=== PATIENT | female | born 1950 | race African-American/Black ===

== ENCOUNTER → 2016-11-07 | Outpatient (CLI) | payer OTHER, MEDICARE ==
[~2016-11-07] VITALS: Ht 157.5 cm; Wt 85.5 kg
[~2016-11-07] MED LIST: ACTOS 30 MG TAB30 M1 PO; ACYCLOVIR 200200 MG PO; AMITRIPTYLINE H25 M2 PO; ATORVASTATIN CA40 MG PO; FLONASE 0.05%50 MCG NASAL; GLUCOTROL5 MG PO; HYDROCODON-ACE1 EAC7 PO; INVOKANA100 MG PO; INVOKANA300 MG PO; LIDODERM 5%1 PATC1 TRANSDERM; LOSARTAN-HCTZ1 EAC3 PO; MEDROLDOSEPACK PO; NEXIUM40 MG PO; NORCO 5-325 TA1 EACH PO; NORVASC 5 MG TAB5 MG PO; OXYBUTYNIN 5 MG5 M2 PO; POTASSIUM20 PO; ROPINIROLE HCL0.5 MG PO; SYMBICORT160 MCG/4. INH; TRULICITY0.75 MG/0. SQ; ULTRACET TABLET1 TAB PO; VENTOLIN HFA 1818 GM INH; [UNRECOGNIZED DRUG - OTHER] MC
--- NOTE | ~2016-11-07 | HPC ---
[facility] [place] [address] PAIN MANAGEMENT CONSULTATION Name: MARION DE JESUS [facility] #: [facility]#: [id number] Admission: 11/07/16 Attend Phys: Wallace Gonzalez MD Discharge: Date of : 48 Report #: [id number] THIS REPORT FOR: //name// CC: Jose Gonzalez DATE OF SERVICE: 11/07/2016 DATE OF REGISTRATION: 11/07/2016 Followup visit for low back pain with degenerative changes and radiculopathy, bilateral lower extremities. The patient returns to pain clinic today for an epidural injection. Her last injection was 4 months ago. At that time, she reports significant improvement for nearly 3-1/2 months. Pain was in the range of 80% by her estimation. Pain is now returning. She would like another epidural injection. Pain is in her low back, radiates through the left leg, constant, burning, aching and pulling. Pain intensity today is 9/10. MEDICATIONS: Trulicity, ropinirole, fluticasone, albuterol, acyclovir, amlodipine, losartan, oxybutynin, glipizide, potassium. ALLERGIES: LATEX, TRIMETHOPRIM. PHYSICAL EXAMINATION: She moves from sitting to standing position, walks with a cane. She has had ankle problems and has a slightly antalgic gait related to that. She has decreased range of motion of the lumbar spine and tenderness across the low back and into the left buttocks. Straight leg raising reproduces pain from the hip to the knee. Sensation is diminished and she has some burning in the calf with straight leg raising. Weakness is noted bilaterally throughout the lower extremities. IMPRESSION: Low back pain with multiple degenerative changes, radiculopathy primarily on the left today. Previously was on the right. Pain follows L4-L5 distribution as before. PROCEDURE: Lumbar epidural steroid injection L4-L5, left paramedian approach. DESCRIPTION OF PROCEDURE: The patient was taken to the fluoroscopic suite, placed prone, skin prepped with ChloraPrep. Skin anesthetized at L4-L5 to left of midline. A 20-gauge Tuohy epidural needle advanced in the epidural space with loss of resistance. No blood or CSF aspirated. A 1 mL of Omnipaque injected with good spread of dye observed in the epidural space and then [address] [address] PAIN MANAGEMENT CONSULTATION Name: MARION DE JESUS Raad Room #: REG Mehul Casillas#: [id number] Admission: 11/07/16 Attend Phys: Wallace Gonzalez MD Discharge: Date of : 48 Report #: [id number] followed by 3 mL of 0.5% lidocaine mixed with 80 mg of triamcinolone. She tolerated the procedure well and was observed for about 45 minutes and then discharged. Followup visit planned as needed. By: 1028 1647 Wallace Gonzalez MD /nt
[2016-11-07 08:57] VITALS: BP 157/83
== END ==
LOC: PAIN 06:52
DX: M54.16 Radiculopathy, lumbar region (principal); I10 Essential (primary) hypertension

== ENCOUNTER → 2017-01-29 | Outpatient (CLI) | payer OTHER, MEDICARE | LOC: RAD 01:48 | DX: Z12.31 Encounter for screening mammogram for malignant neoplasm of breast (principal); N63 Unspecified lump in breast ==

== ENCOUNTER → 2017-02-05 | Outpatient (CLI) | payer OTHER, MEDICARE | LOC: RAD 01:10 → EDSTATUS 06:31 → RAD 06:33 | DX: N63 Unspecified lump in breast (principal) ==

== ENCOUNTER → 2017-08-14 | Outpatient (CLI) | payer OTHER, MEDICARE ==
[~2017-08-14] VITALS: Ht 154.9 cm; Wt 80.2 kg
--- NOTE | ~2017-08-14 | HPC ---
[facility] [address] [place] [address] PAIN MANAGEMENT CONSULTATION Name: MARION DE JESUS Room #: REG [facility].#: [id number] Admission: 08/14/17 Attend Phys: Wallace Gonzalez MD Discharge: Date of : 48 Report #: [id number] THIS REPORT FOR: //name// CC: Jose Gonzalez DATE OF SERVICE: 08/14/2017 Followup visit for lumbar radiculopathy. The patient returns to the pain clinic today for an epidural injection. Her last injection was performed on 11/07/2016. It has been almost 10 months. She reports that she had outstanding pain relief for nearly 8-9 months. Pain is now returning. It is in her buttocks bilaterally. It is worse with lying down, prolonged standing and walking. She gets relief when she takes medication or sits. The patient has a comorbid condition of asthma. She has shortness of breath. She is a ang-tlwuwvq-etgqjedil diabetic. MEDICATIONS: Reviewed and reconciled from the electronic medical record. ALLERGIES: LATEX, SULFA AND TRIMETHOPRIM. PQRS: Reviewed. Her BMI is 33.4. Weight loss has been discussed. She has some osteoarthritis, mostly in her hips. She has had a previous rotator cuff surgery due to degenerative condition of the shoulder. She does not smoke. She is not currently receiving opioid medication and it is under discussion regarding the opioid crisis in the [place]. IMPRESSION: Chronic low back pain with degenerative changes, with radiculopathy on the left L4-L5 distribution. PROCEDURE: Lumbar epidural injection under fluoroscopic guidance. DESCRIPTION OF PROCEDURE: She was taken to the fluoroscopic suite, placed prone and skin prepped with ChloraPrep. Skin anesthetized over the L4-L5 interspace. A 20-gauge Tuohy epidural needle was advanced in the epidural space with loss of resistance technique. There was no blood or CSF aspirated. One mL of Omnipaque was injected. Good spread of dye observed in the epidural space, followed by 3 mL of 0.5% lidocaine with 80 mg triamcinolone. She tolerated the procedure well, was observed for 45 minutes and discharged. [address] [address] PAIN MANAGEMENT CONSULTATION Name: MARION DE JESUS Room #: REG CLI [facility]#: [id number] Admission: 08/14/17 Attend Phys: Wallace Gonzalez MD Discharge: Date of : 48 Report #: [id number] Followup visit planned as needed. <ELECTRONICALLY SIGNED> By: Wallace Gonzalez MD 10/08/17 1640 1550 2244 Wallace Gonzalez MD /nt
[2017-08-14 14:37] VITALS: BP 123/76
== END | disposition home or self-care (01) ==
LOC: PAIN 07:20
DX: M54.16 Radiculopathy, lumbar region (principal); J45.909 Unspecified asthma, uncomplicated; E11.9 Type 2 diabetes mellitus without complications; Z88.8 Allergy status to other drugs, medicaments and biological substances; Z68.33 Body mass index [BMI] 33.0-33.9, adult; M19.90 Unspecified osteoarthritis, unspecified site; Z98.890 Other specified postprocedural states

== ENCOUNTER → 2018-01-12 | Outpatient (CLI) | payer OTHER, MEDICARE ==
--- NOTE | ~2018-01-12 | EKG ---
[address] [address] ELECTROCARDIOGRAM REPORT Name: MARION DE JESUS [facility] [id number] Admission: 01/12/18 Attend Phys: Omi Olguin, Discharge: Date of : 48 Report #: [id number] THIS REPORT FOR: //name// [facility] Test Date: 2018-01-12 Test Time: 10:30:21 Pat Name: MARION DE JESUS Department: Room: Gender: F Admitting Officer: : 1950 Requested By: Omi Olguin Order Number: [id number] MD: Jerman Yang Measurements Intervals [place] Rate: 70 P: 65 W[place]: 163 QRS: 12 QRSD: 97 T: 54 QT: 399 QTc: 431 Interpretive Statements Sinus rhythm Compared to ECG 04/07/2016 15:56:13 No significant changes Electronically Signed On 01-12-2018 12:37:38 CDT by Jerman Yang [email or web address] <ELECTRONICALLY SIGNED> By: Jerman Yang MD 01/12/18 1237 1030 1030 Jerman Yang MD /[email or web address]
== END ==
LOC: RAD 09:38
DX: R06.02 Shortness of breath (principal); M20.21 Hallux rigidus, right foot; M79.674 Pain in right toe(s)

== ENCOUNTER → 2018-03-26 | Outpatient (CLI) | payer OTHER, MEDICARE ==
[~2018-03-26] VITALS: Ht 154.9 cm; Wt 79.5 kg
--- NOTE | ~2018-03-26 | HPC ---
[facility] [address] [place] [address] PAIN MANAGEMENT CONSULTATION Name: MARION DE JESUS Room #: REG [facility].#: [id number] Admission: 03/26/18 Attend Phys: Wallace Gonzalez MD Discharge: Date of : 48 Report #: [id number] THIS REPORT FOR: //name// CC: Jose Gonzalez DATE OF SERVICE: 03/26/2018 CHIEF COMPLAINT: Cervicalgia with radiation into the right neck and arm. HISTORY OF PRESENT ILLNESS: The patient is here today in the pain clinic complaining of pain at a level of 8-9 in her neck, radiates to her shoulder and upper arm. She has had several problems on her right side including a right rotator cuff surgery. Carpal tunnel surgery was performed in the 1980s. She also has pain in her wrist that is worse with flexion and pronation. She scores her daily pain is an 8-9/10. MEDICATIONS: Reviewed and reconciled from the medical record. ALLERGIES: LATEX, SULFA and TRIMETHOPRIM. PHYSICAL EXAMINATION: VITAL SIGNS: Reveals blood pressure of 162/92, heart rate 80 and respirations 20. MUSCULOSKELETAL: Neck range of motion is limited in extension, rotation and lateral tilt. She has tenderness along the cervical outflow. There is a positive Spurling's noted on the right. Strength is adequate throughout the upper extremeties without assymetry. Lower extremity strength is also preserved. DTR's in the biceps, triceps and brachioradialis. Sensation throughout the upper extremities normal to pinprick and light touch. IMPRESSION: Cervicalgia with radiculopathy C 6-7 dermatomal distribution. RECOMMENDATIONS: She has benefited previously from epidural injections in the lumbar region. I believe she is experiencing cervical radiculopathies that may well respond to an epidural injection in the neck. We scheduled her for an injection on Friday03/30/2018. Followup visit at that time. <ELECTRONICALLY SIGNED> By: Wallace Gonzalez MD 03/30/18 1102 1554 2315 Wallace Gonzalez MD /nt
[2018-03-26 11:00] VITALS: BP 162/92
== END ==
LOC: PAIN 07:16
DX: M54.12 Radiculopathy, cervical region (principal); G89.29 Other chronic pain

== ENCOUNTER → 2018-03-30 | Outpatient (CLI) | payer OTHER, MEDICARE ==
[~2018-03-30] VITALS: Ht 152.4 cm; Wt 79.4 kg
--- NOTE | ~2018-03-30 | HPC ---
[facility] Evelina [place] [address] PAIN MANAGEMENT CONSULTATION Name: MARION DE JESUS Room #: REG Mehul Whitehead.#: [id number] Admission: 03/30/18 Attend Phys: Wallace Gonzalez MD Discharge: Date of : 48 Report #: [id number] THIS REPORT FOR: //name// CC: Jose Gonzalez DATE OF SERVICE: 03/30/2018 Followup visit for cervical radiculopathy. The patient returns to the pain clinic today for epidural injection. She was last seen on of last week. I reviewed her note. There have been no significant changes. She has persistent pain and radiculopathy in the neck as described and we reviewed the procedure including risks and benefits in some detail. She would like to proceed. IMPRESSION: Cervical radiculopathy following C6-C7 distribution. PROCEDURE: Cervical epidural injection under fluoroscopic guidance. She was taken to fluoroscopic suite for treatment after informed consent. She was placed prone, skin prepped with ChloraPrep. Skin anesthetized over C6-C7. A 20-gauge Tuohy epidural needle advanced first attempt to the epidural space with loss of resistance. There was no blood or CSF aspirated. 1 mL of Omnipaque injected. Good spread of dye observed in the epidural space followed by 3 mL of 0.5% lidocaine mixed with 80 mg triamcinolone. She tolerated the procedure well and was observed for 45 minutes and discharged. Follow up as needed. By: 1239 2332 MD shaun Edge
[2018-03-30 10:11] VITALS: BP 147/79
== END | disposition home or self-care (01) ==
LOC: PAIN 06:58
DX: M54.12 Radiculopathy, cervical region (principal); G89.29 Other chronic pain; E11.9 Type 2 diabetes mellitus without complications; J45.909 Unspecified asthma, uncomplicated; Z98.890 Other specified postprocedural states; Z91.040 Latex allergy status; Z88.2 Allergy status to sulfonamides; Z88.8 Allergy status to other drugs, medicaments and biological substances

== ENCOUNTER → 2018-07-09 | Outpatient (CLI) | payer OTHER, MEDICARE ==
[~2018-07-09] VITALS: Ht 154.9 cm; Wt 77.3 kg
--- NOTE | ~2018-07-09 | HPC ---
[facility] [address] [place] [address] PAIN MANAGEMENT CONSULTATION Name: MARION DE JESUS Room #: REG STEPHANIE Ventura.#: [id number] Admission: 07/09/18 Attend Phys: Wallace Gonzalez MD Discharge: Date of : 48 Report #: [id number] THIS REPORT FOR: //name// CC: Jose Gonzalez DATE OF SERVICE: 07/09/2018 Followup visit for pain in the right hip, posterior with radiation to the groin. The patient is here today complaining of hip pain. On physical exam and history, this would certainly point to an arthritic hip. It also has elements of sacroiliac joint pain. Pain is severe with standing and walking. She has pain with internal and external rotation. Pain at times radiates around in the front to the groin, but the majority is posterior in the gluteal region just lateral to the sacroiliac joint on the right. She denies any further radiating pain. Pain is pretty bad, scoring at 9/10. She gets some relief with medication and heat. An x-ray was ordered while she was in clinic. I evaluated the x-rays and there is no significant degenerative change noted in the left hip. There is, however, some rough degeneration seen along the area of the sacroiliac joint, which implicated that joint as a pain generator. Medications were reviewed and reconciled. She does not take opioid medication and is on no agreement with the clinic. 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 Hips are implicated, sacroiliac joint as well. She is not a fall risk and has not fallen in the last 3 months. She is on no blood thinners, but has a history of hypertension and is under treatment. PHYSICAL EXAMINATION: VITAL SIGNS: Blood pressure 114/72, heart rate 87, respirations 16, O2 sat 98. EXTREMITIES: Examination of the left hip reveals pain with internal and external rotation. Localized tenderness just lateral to the sacroiliac joint on the right. RADHA is positive contralateral to the right hip with movement on the left. Also suggestive of sacroiliac joint pain. 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 A sacroiliac injection was recommended as a treatment, both diagnostic and therapeutic, and she understands the rationale. Procedure was performed today under fluoroscopic guidance. PROCEDURE: Sacroiliac joint injection. [address] [address] PAIN MANAGEMENT CONSULTATION Name: MARION DE JESUS Room #: REG CLI Vinny#: [id number] Admission: 07/09/18 Attend Phys: Wallace Gonzalez MD Discharge: Date of : 48 Report #: [id number] She was taken to fluoroscopic suite, placed prone, skin prepped with ChloraPrep. Skin anesthetized over the sacroiliac joint. A 22-gauge Tuohy epidural needle was gently advanced into the sacroiliac joint and 0.25 mL of Omnipaque was injected to demonstrate an excellent arthrogram. It was then followed by 3 mL of 0.5% lidocaine mixed with 40 mg of triamcinolone. She tolerated the procedure well and was observed for 45 minutes and discharged. Follow up as needed. By: 1353 1627 Wallace Gonzalez MD /nt
[2018-07-09 09:57] VITALS: BP 114/72
== END | disposition home or self-care (01) ==
LOC: PAIN 07-06 00:21
DX: M53.3 Sacrococcygeal disorders, not elsewhere classified (principal); G89.29 Other chronic pain; I10 Essential (primary) hypertension; J45.901 Unspecified asthma with (acute) exacerbation; E11.9 Type 2 diabetes mellitus without complications; Z91.040 Latex allergy status; Z88.2 Allergy status to sulfonamides; Z88.8 Allergy status to other drugs, medicaments and biological substances; Z79.899 Other long term (current) drug therapy; Z98.890 Other specified postprocedural states

== ENCOUNTER → 2018-08-13 | Outpatient (CLI) | payer OTHER, MEDICARE ==
[~2018-08-13] VITALS: Ht 157.5 cm; Wt 76.1 kg
[~2018-08-13] MED LIST changes: +TRAMADOL 50 MG50 MG PO
--- NOTE | ~2018-08-13 | HPC ---
[facility] [place] [address] PAIN MANAGEMENT CONSULTATION Name: MARION DE JESUS [facility] [id number] Admission: 08/13/18 Attend Phys: Wallace Gonzalez MD Discharge: Date of : 48 Report #: [id number] THIS REPORT FOR: //name// CC: Jose Gonzalez DATE OF SERVICE: 08/13/2018 Followup visit for chief complaint of right hip pain. The patient returns to Pain Clinic today after a sacroiliac injection, which provided little to no relief. Pain today appears to be more consistent with pain in the right hip joint. Pain radiates into the groin as well as posteriorly towards the sacroiliac joint. She has local tenderness both in the groin in the SI. Her last SI joint I believe was a spot on. Good arthrogram was achieved. She never received benefit. I think that is a negative diagnostic test. I would expect her to receive some relief at least from the local anesthetic. We reviewed her x-rays of the pelvis and hip. There is no obvious significant degenerative change of the hip, but this is of course only a plain film and is nonsensitive. Her physical exam points towards possible osteoarthritis or degenerative hip as a possible cause as well. PHYSICAL EXAMINATION: Her blood pressure is 154/70, heart rate 75. She has tenderness both in the groin and over the sacroiliac joint and the greater trochanter as well. Internal and external rotation reproduce pain, particularly internal rotation. Positive tenderness in the greater trochanter as well. IMPRESSION: Osteoarthritis, right hip. RECOMMENDATIONS: Diagnostic/therapeutic right hip injection under fluoroscopic guidance. PROCEDURE: Was explained the risks and benefits and after informed consent, she was taken to fluoroscopic suite. She was placed supine. Skin was prepped with ChloraPrep and a 25-gauge needle advanced into the hip capsule. 1.5 mL of Omnipaque was injected and excellent arthrogram achieved. It was followed then by 3 mL of 0.5% lidocaine mixed with 40 mg of triamcinolone. Her pain was 0 in recovery room. This should be diagnostic of the hip as a primary pain generator. We will see how long this injection provides relief. If pain returns fairly [facility] [address] [place] [address] PAIN MANAGEMENT CONSULTATION Name: MARION DE JESUS Room #: REG [facility]#: [id number] Admission: 08/13/18 Attend Phys: Wallace Gonzalez MD Discharge: Date of : 48 Report #: [id number] quickly, further imaging may be necessary, but she should see an orthopedic surgeon. She may be a candidate for hip replacement. By: 1644 0227 Wallace Gonzalez MD /nt
[2018-08-13 13:15] VITALS: BP 154/78
--- NOTE | 2018-08-13 13:24 | NUR ---
Pain Clinic Assessment: 1. History of Osteoarthritis: HIPS FEET TOES NECK SHOULDERS History of Rheumatoid Arthritis: Not Applicable 2. Height: 5 ft. 2 in. 157.5 cm. Weight: 167.8 lb. oz. 76.114 kg. Patient's BMI: 30.7 3. Vital Signs: BP: 154/78 Pulse: 75 Resp: 20 Temp: 02 Sat: 98 ECG Mon: 4. Pain Intensity: 9 5. Fall Risk: Dizziness: N Needs help standing or walking: N Fallen in the last 3 months: N Fall risk comments: 6. Patient on Blood Thinner: None 7. History of Hypertension: Y 8. Opioid Therapy greater than 6 weeks: N Opiate Contract Signed: 9. Risk Assessment Tool Provided: LOW RISK 0/3 10. Functional Assessment Tool: 55/70 11. Recreational Drug Use: Never Drug Type: Tobacco Use: Never Smoker Tobacco Type: Amount or Packs/day: How Many Years: Alcohol Use: Yes Frequency: Weekly Quant: BEER ON WEEKENDS
== END | disposition home or self-care (01) ==
LOC: PAIN 07:34
DX: M16.11 Unilateral primary osteoarthritis, right hip (principal); G89.29 Other chronic pain; E11.9 Type 2 diabetes mellitus without complications; J45.901 Unspecified asthma with (acute) exacerbation; Z91.040 Latex allergy status; Z88.2 Allergy status to sulfonamides; Z88.8 Allergy status to other drugs, medicaments and biological substances; Z79.899 Other long term (current) drug therapy; Z98.890 Other specified postprocedural states

== ENCOUNTER → 2018-09-03 | Outpatient (CLI) | payer OTHER, MEDICARE ==
[~2018-09-03] VITALS: Ht 157.5 cm; Wt 76.9 kg
--- NOTE | ~2018-09-03 | HPC ---
[address] [address] PAIN MANAGEMENT CONSULTATION Name: MARION DE JESUS [facility] [id number] Admission: 09/03/18 Attend Phys: Wallace Gonzalez MD Discharge: Date of : 48 Report #: [id number] THIS REPORT FOR: //name// CC: Jose Gonzalez DATE OF SERVICE: 09/03/2018 Followup visit for right hip pain. The patient presents back to the pain clinic today after her right hip injection. She was completely pain free for nearly 48 hours and the pain gradually has returned. She is now back to baseline. She is curious about next steps. We have a plain film x-ray, but no MRI. I think we are at point where we need to pursue further diagnostic testing and then send her to a surgeon for assessment. I will talk with Dr. Munoz about his choice of surgeon. She has a longstanding excellent relationship with Dr. Munoz as a primary physician. The injection, I think was diagnostic given her outstanding response. MRI will give us further information. I have given her tramadol in the past for pain relief. She will continue to use medication, ice and heat to provide some relief until after we make further decisions on direction. IMPRESSION: Osteoarthritis, right hip. PLAN: MRI and referral to Orthopedic Surgery. By: 1202 1210 Wallace Gonzalez MD /nt
--- NOTE | 2018-09-03 10:27 | NUR ---
Pain Clinic Assessment: 1. History of Osteoarthritis: HIPS FEET TOES NECK SHOULDERS History of Rheumatoid Arthritis: Not Applicable 2. Height: ft. in. cm. Weight: lb. oz. kg. Patient's BMI: 3. Vital Signs: BP: Pulse: Resp: Temp: 02 Sat: ECG Mon: 4. Pain Intensity: 8-9 5. Fall Risk: Dizziness: N Needs help standing or walking: N Fallen in the last 3 months: N Fall risk comments: 6. Patient on Blood Thinner: None 7. History of Hypertension: Y 8. Opioid Therapy greater than 6 weeks: N Opiate Contract Signed: 9. Risk Assessment Tool Provided: LOW RISK 0/3 10. Functional Assessment Tool: 55/70 11. Recreational Drug Use: Never Drug Type: Tobacco Use: Never Smoker Tobacco Type: Amount or Packs/day: How Many Years: Alcohol Use: Yes Frequency: Special Occasions Quant: 1
[2018-09-03 10:30] VITALS: BP 138/77
--- NOTE | 2018-09-03 10:31 | NUR ---
Pain Clinic Assessment: 1. History of Osteoarthritis: HIPS FEET TOES NECK SHOULDERS History of Rheumatoid Arthritis: Not Applicable 2. Height: 5 ft. 2 in. 157.5 cm. Weight: 169.6 lb. oz. 76.930 kg. Patient's BMI: 31.0 3. Vital Signs: BP: 138/77 Pulse: 89 Resp: 18 Temp: 02 Sat: 98 ECG Mon: 4. Pain Intensity: 8-9 5. Fall Risk: Dizziness: N Needs help standing or walking: N Fallen in the last 3 months: N Fall risk comments: 6. Patient on Blood Thinner: None 7. History of Hypertension: Y 8. Opioid Therapy greater than 6 weeks: N Opiate Contract Signed: 9. Risk Assessment Tool Provided: LOW RISK 0/3 10. Functional Assessment Tool: 55/70 11. Recreational Drug Use: Never Drug Type: Tobacco Use: Never Smoker Tobacco Type: Amount or Packs/day: How Many Years: Alcohol Use: Yes Frequency: Special Occasions Quant: 1
== END ==
LOC: PAIN 07:11
DX: M16.11 Unilateral primary osteoarthritis, right hip (principal); Z79.899 Other long term (current) drug therapy

== ENCOUNTER → 2018-09-08 | Outpatient (CLI) | payer OTHER, MEDICARE | LOC: MRI 09:30 | DX: S73.101A Unspecified sprain of right hip, initial encounter (principal); M16.11 Unilateral primary osteoarthritis, right hip; M25.451 Effusion, right hip; M25.751 Osteophyte, right hip; X58.XXXA Exposure to other specified factors, initial encounter; Y93.89 Activity, other specified; Y92.89 Other specified places as the place of occurrence of the external cause; Y99.8 Other external cause status ==

== ENCOUNTER → 2019-07-29 | Outpatient (CLI) | payer OTHER, MEDICARE ==
[~2019-07-29] VITALS: Ht 154.9 cm; Wt 0.5 kg
--- NOTE | ~2019-07-29 | HPC ---
[facility] [address] [place] [address] PAIN MANAGEMENT CONSULTATION Name: MARION DE JESUS Room #: REG [facility].#: [id number] Admission: 07/29/19 Attend Phys: Wallace Gonzalez MD Discharge: Date of : 48 Report #: [id number] THIS REPORT FOR: //name// CC: Jose Gonzalez DATE OF SERVICE: 07/29/2019 Followup visit for low back pain with radiculopathy. The patient is here today in hopes for an epidural steroid injection. Record will reflect that her last injection was performed in 2017. She responded nicely with pain relief for what was at that time felt to be radicular symptoms. She also has pain in her hip and has been treated in other clinics with injection therapy for hip pain. I have also injected her hip performing her last hip injection in our clinic in July 2019. She does not complain of pain today on either hip. Her pain rather is radiating into her thigh and down the leg. She scores it as a 9/10. PQRS REVIEW: 1. Diffuse osteoarthritis of hips, knees, feet, neck, shoulders, spine. 2. BMI is 31, blood pressure 140/75, heart rate 75, respirations 18, O2 sat 98. 3. Pain intensity 9. 4. Fall risk, none. 5. She is on no blood thinners. 6. She has a history of hypertension and is treated. 7. Medications were reviewed. 8. She is on no opioids and no contract has been signed. She has completed an opioid risk score, which is 0. 9. Functional assessment score is very high, 65/70, suggesting significant interference of her pain with day-to-day activities, although this may be a slight exaggeration in her score judging by my conversation with her. 10. No recreational drug use. No tobacco and she drinks a couple of beers weekly. PHYSICAL EXAMINATION: VITAL SIGNS: As noted above. MUSCULOSKELETAL: Pain across the low back, pain with forward flexion and extension. Positive straight leg raising, reproducing pain in the posterior thigh bilaterally. DIAGNOSTIC TESTS: X-rays have been reviewed. She does have spondylitic changes and spondylolisthesis. Pain appears to be emanating from the degenerative segment of L4-L5. [address] [address] PAIN MANAGEMENT CONSULTATION Name: MARION DE JESUS Room #: REG [facility] Vinny#: [id number] Admission: 07/29/19 Attend Phys: Wallace Gonzalez MD Discharge: Date of : 48 Report #: [id number] IMPRESSION: Low back pain with degenerative changes, lumbar spondylosis with radiculopathy, bilateral pain, L4-L5. PROCEDURE: L4-L5 epidural injection under fluoroscopic guidance. DESCRIPTION OF PROCEDURE: She was taken to fluoroscopic suite, placed prone, skin prepped with ChloraPrep. Skin was anesthetized over the L4-L5 interspace. A 20-gauge Tuohy epidural needle was advanced in first attempt in the epidural space with loss of resistance. There was no blood or CSF aspirated. A 1 mL of Omnipaque was injected. Excellent spread of dye observed in the epidural space followed by 3 mL of 0.5% lidocaine mixed with 80 mg of triamcinolone. She tolerated the procedure well. She was observed for 45 minutes and discharged. There were no complications. Pain score was reduced by over 50%. Followup visit planned as needed. By: 1706 2246 Wallace Gonzalez MD /nt
[2019-07-29 09:32] VITALS: BP 140/75
--- NOTE | 2019-07-29 09:41 | NUR ---
Pain Clinic Assessment: 1. History of Osteoarthritis: HIPS FEET TOES NECK SHOULDERS SPINE History of Rheumatoid Arthritis: Not Applicable 2. Height: 5 ft. 1 in. 154.9 cm. Weight: lb. 17 oz. 0.481 kg. Patient's BMI: 0.2 3. Vital Signs: BP: 140/75 Pulse: 75 Resp: 18 Temp: 02 Sat: 98 ECG Mon: 4. Pain Intensity: 9 5. Fall Risk: Dizziness: N Needs help standing or walking: N Fallen in the last 3 months: N Fall risk comments: 6. Patient on Blood Thinner: None 7. History of Hypertension: Y 8. Opioid Therapy greater than 6 weeks: N Opiate Contract Signed: 9. Risk Assessment Tool Provided: LOW RISK 0/3 10. Functional Assessment Tool: 65/70 11. Recreational Drug Use: Never Drug Type: Tobacco Use: Never Smoker Tobacco Type: Amount or Packs/day: How Many Years: Alcohol Use: Yes Frequency: Weekly Quant: COUPLE BEERS
== END | disposition home or self-care (01) ==
LOC: PAIN 06:56
DX: M51.16 Intervertebral disc disorders with radiculopathy, lumbar region (principal); M47.26 Other spondylosis with radiculopathy, lumbar region; G89.29 Other chronic pain; M19.90 Unspecified osteoarthritis, unspecified site; I10 Essential (primary) hypertension; E11.9 Type 2 diabetes mellitus without complications; J45.909 Unspecified asthma, uncomplicated; Z98.890 Other specified postprocedural states; Z91.040 Latex allergy status; Z88.2 Allergy status to sulfonamides; Z88.8 Allergy status to other drugs, medicaments and biological substances; Z79.899 Other long term (current) drug therapy

== ENCOUNTER → 2019-09-30 | Outpatient (CLI) | payer OTHER, MEDICARE ==
[~2019-09-30] VITALS: Ht 154.9 cm; Wt 76.6 kg
[~2019-09-30] MED LIST changes: +CANDESARTAN-HC1 EAC2 PO
[2019-09-30 10:23] VITALS: BP 135/77
--- NOTE | 2019-09-30 10:40 | NUR ---
Pain Clinic Assessment: 1. History of Osteoarthritis: HIPS FEET TOES NECK SHOULDERS SPINE History of Rheumatoid Arthritis: Not Applicable 2. Height: 5 ft. 1 in. 154.9 cm. Weight: 168.8 lb. oz. 76.567 kg. Patient's BMI: 31.9 3. Vital Signs: BP: 135/77 Pulse: 79 Resp: 16 Temp: 02 Sat: 100 ECG Mon: 4. Pain Intensity: 10 5. Fall Risk: Dizziness: N Needs help standing or walking: Y Fallen in the last 3 months: Y Fall risk comments: 6. Patient on Blood Thinner: None 7. History of Hypertension: Y 8. Opioid Therapy greater than 6 weeks: N Opiate Contract Signed: 9. Risk Assessment Tool Provided: LOW RISK 0 10. Functional Assessment Tool: 65/70 11. Recreational Drug Use: Never Drug Type: Tobacco Use: Never Smoker Tobacco Type: Amount or Packs/day: How Many Years: Alcohol Use: Yes Frequency: Special Occasions Quant: 1
--- NOTE | 2019-10-07 14:31 | HPC ---
[facility] [address] [place] [address] PAIN MANAGEMENT CONSULTATION Name: MARION DE JESUS Room #: REG Mehul Nazario.#: [id number] Admission: 09/30/19 Attend Phys: Wallace Gonzalez MD Discharge: Date of : 48 Report #: [id number] THIS REPORT FOR: cc: Jose Munoz MD, Eric K. MD Morgan,Wallace Carvajal MD ~ THIS REPORT FOR: //name// CC: Jose Gonzalez DATE OF SERVICE: 09/30/2019 Followup visit for severe right hip pain with osteoarthritis. The patient is here today, sent back to our office by Dr. Lynch at [facility]. She had nearly complete pain relief after her last hip injection, but the duration of response was short. She has seen Dr. Lynch who has suggested that her response to the diagnostic injection would indicate that she has indeed pain from the hip joint and based upon his assessment feels that she may ultimately require a hip replacement. An MRI has been performed showing osteoarthritis of the right hip with degenerative tearing of the anterior and superior labrum. She would like another injection today. She can barely walk and is using a cane. She is hopeful that she will have a bit longer duration of response to this injection. PQRS REVIEW: 1. Positive for osteoarthritis, not only in the right hip, but also knees, feet, neck, shoulders and spine. Her BMI is 31.9 and stable. Blood pressure 135/77, heart rate 79, respirations 16, O2 sat 100, pain intensity today is 10/10, quite miserable. She needs help standing, walking and has fallen once in the last 3 months because the pain in the hip. She is not on blood thinning medications, but is treated by Dr. Munoz for hypertension. I have reviewed all of her medications. They include potassium, glipizide, oxybutynin, amlodipine, Symbicort spray, Ventolin, Flonase, candesartan, hydrochlorothiazide and occasional Fleming provided for her by Dr. Munoz. We discussed the importance of safeguarding these medications. She receives only 30 at a time. She has completed an opioid risk tool in our clinic. Her score is 0 suggesting low risk of addiction. Her functional assessment score is really high though. At 65/70 suggesting dramatic impact of all of her daily activities with pain. She denies use of tobacco, does drink alcohol occasionally in social occasions. PHYSICAL EXAMINATION: [facility] [address] [place] [address] PAIN MANAGEMENT CONSULTATION Name: MARION DE JESUS [id number] Admission: 09/30/19 Attend Phys: Wallace Gonzalez MD Discharge: Date of : 48 Report #: [id number] VITAL SIGNS: As noted above. Her gait is markedly antalgic and she uses a cane to get from chair to standing and walks with a limp. CHEST: Clear. CARDIAC: Rhythm is regular. MUSCULOSKELETAL: Examination of the spine reveals minimal pain with forward flexion and extension. There is significant pain in the right hip with internal and external rotation and tenderness over the anterior thigh. IMPRESSION: 1. Chronic low back pain with degenerative changes, spondylosis and radiculopathy. This is not radicular pain today. 2. Osteoarthritis of the right hip. RECOMMENDATION: Repeat right hip injection under fluoroscopic guidance. After informed consent, she was taken to fluoroscopic suite, placed prone, skin prepped with ChloraPrep over the right hip. A 22-gauge needle was advanced into the hip capsule and I injected 1 mL of Omnipaque demonstrating an excellent arthrogram. This was then followed by a total of 3 mL of 0.5% bupivacaine mixed with 40 mg of triamcinolone. She tolerated the procedure well. Pain was reduced by about 50% in recovery room and she was able to ambulate more easily out to her car. Followup visit planned as needed. She will continue to follow with Dr. Lynch in anticipation of possible surgery in the future. <ELECTRONICALLY SIGNED> By: Wallace Gonzalez MD 10/07/19 [id number] Wallace Gonzalez MD /nt
== END | disposition home or self-care (01) ==
LOC: PAIN 09-28 13:20
DX: M25.551 Pain in right hip (principal); M16.11 Unilateral primary osteoarthritis, right hip; M51.16 Intervertebral disc disorders with radiculopathy, lumbar region; M47.26 Other spondylosis with radiculopathy, lumbar region; G89.29 Other chronic pain; I10 Essential (primary) hypertension; E11.9 Type 2 diabetes mellitus without complications; J45.909 Unspecified asthma, uncomplicated; M19.90 Unspecified osteoarthritis, unspecified site; Z98.890 Other specified postprocedural states; Z79.899 Other long term (current) drug therapy; Z88.2 Allergy status to sulfonamides; Z91.040 Latex allergy status; Z88.8 Allergy status to other drugs, medicaments and biological substances

== ENCOUNTER → 2021-04-23 | Outpatient (CLI) | payer OTHER ==
[~2021-04-23] VITALS: Ht 154.9 cm; Wt 75.0 kg
[~2021-04-23] MED LIST changes: +ACYCLOVIR 400400 MG PO; +ASA81BEC PO; +CALCIUM 500 +1 EACH PO; +LIDODERM1 EACH TOP; +LIPITOR40 MG PO; +MAGNESIUM OXID200 MG PO; +PROAIR HFA8.5 GM INH; +TOPROL XL100 MG PO; +VITAMIN B COMP1 EACH PO; +VITAMIN B12-FO1 EAC1 PO
[2021-04-23 13:37] VITALS: BP 178/91
--- NOTE | 2021-04-23 13:57 | NUR ---
Pain Clinic Assessment: 1. History of Osteoarthritis: HIPS FEET TOES NECK SHOULDERS SPINE History of Rheumatoid Arthritis: Not Applicable 2. Height: 5 ft. 1 in. 154.9 cm. Weight: 165.4 lb. oz. 75.025 kg. Patient's BMI: 31.3 3. Vital Signs: BP: 178/91 Pulse: 62 Resp: 20 Temp: 02 Sat: 100 ECG Mon: 4. Pain Intensity: 6 5. Fall Risk: Dizziness: N Needs help standing or walking: N Fallen in the last 3 months: N Fall risk comments: 6. Patient on Blood Thinner: None 7. History of Hypertension: Y 8. Opioid Therapy greater than 6 weeks: N Opiate Contract Signed: 9. Risk Assessment Tool Provided: LOW RISK 0 10. Functional Assessment Tool: 65/70 11. Recreational Drug Use: Never Drug Type: Tobacco Use: Never Smoker Tobacco Type: Amount or Packs/day: How Many Years: Alcohol Use: Yes Frequency: Special Occasions Quant: 1
== END ==
LOC: PAIN 09:44
PROVIDERS: ATTEND Anesthesiology Pain Medicine
DX: M54.16 Radiculopathy, lumbar region (principal); M25.551 Pain in right hip; M25.572 Pain in left ankle and joints of left foot

== ENCOUNTER → 2021-04-26 | Outpatient (CLI) | payer OTHER ==
[~2021-04-26] VITALS: Ht 154.9 cm; Wt 74.8 kg
[2021-04-26 10:12] VITALS: BP 174/93
== END | disposition home or self-care (01) ==
LOC: PAIN 07:05
PROVIDERS: ATTEND Anesthesiology Pain Medicine
DX: M54.16 Radiculopathy, lumbar region (principal); G89.29 Other chronic pain; M19.90 Unspecified osteoarthritis, unspecified site; E11.9 Type 2 diabetes mellitus without complications; J45.909 Unspecified asthma, uncomplicated; Z98.890 Other specified postprocedural states; Z79.899 Other long term (current) drug therapy; Z88.2 Allergy status to sulfonamides; Z91.040 Latex allergy status